=== PATIENT | male | born 1965 | race American Indian/Alaskan Native ===

== ENCOUNTER 2017-02-24 05:52 | Day surgery (SDC) | payer BC ==
[2017-02-24] MEDS ORDERED: fentaNYL 100 MCG/2 ML SDV IV ONE ×2 (05:53→07:33)
[2017-02-24] MEDS ORDERED: Midazolam 1 MG/ML 2 ML SDV IV ONE ×6 (05:53→07:42)
[2017-02-24] MEDS ORDERED: Sodium Chloride 0.9% 10 ML Syringe FLUSH PRN (06:00)
[2017-02-24] MEDS ORDERED: Dextrose 5%-0.45% NaCl 1,000 ML IV SCH (06:00)
[2017-02-24] MEDS ORDERED: Midazolam 1 MG/ML 2 ML SDV ONE (06:14)
[2017-02-24] MEDS ORDERED: fentaNYL 100 MCG/2 ML SDV ONE (06:14)
--- NOTE | 2017-02-24 13:07 | OR ---
DATE: 02/24/2017 PROCEDURES: Total colonoscopy, narrow-band imaging, and multiple cold snare polypectomies. INSTRUMENT USED: CF-H180 AL Olympus video colonoscope. PREMEDICATIONS: Fentanyl 100 mcg intravenous, Versed 3.5 mg intravenous. The procedure was done under pulse oximetry, BP recording, and monitoring specialist. INDICATION: Screening colonoscopic examination is done for detection of any polypoid lesions and removal, endoscopic hemostasis therapy if needed. DESCRIPTION OF PROCEDURE: Initial rectal exam was unremarkable. Rigid anoscopy was normal. The colonoscope was passed with ease. In the distal rectum, 3-mm sized benign- appearing polyp was noted. NBI views were obtained, photographs were taken, cold snare polypectomy was done, the tissue was retrieved and sent for histopathology. In the distal sigmoid colon, another 3-mm sized benign- appearing polyp was noted, NBI views were obtained, cold snare polypectomy was done, the tissue was retrieved and sent for histopathology. Numerous scattered diverticula were noted in the distal left colon along with some deformity. The scope was passed with ease up to the ileocecal area, photographs were taken of the normal-appearing cecum identified by landmarks of appendiceal orifice and double-bulged ileocecal folds. No bleeding was noted from any of the visualized areas at the commencement of examination. No stricture. No vascular ectasia. No large isolated ulcerations seen. No evidence of diffuse inflammatory bowel disease in the form of friability, contact bleeding, or ulcerations. Probing the proximal sides of folds and flexures, using adequate distention and clearing of the stool material, withdrawal of the scope was made. No bleeding was noted from any of the visualized areas at the completion of examination. IMPRESSION: 1. Diminutive rectosigmoid polyps. 2. Diverticulosis. The patient tolerated the procedure well. [facility] /[id number]
== END 2017-02-24 09:50 | disposition home or self-care (01) ==
LOC: DL.ENDO 05:52
PROVIDERS: ATTEND Internal Medicine Gastroenterology
DX: Z12.11 Encounter for screening for malignant neoplasm of colon (principal); D12.8 Benign neoplasm of rectum; K57.30 Diverticulosis of large intestine without perforation or abscess without bleeding; F17.210 Nicotine dependence, cigarettes, uncomplicated; I10 Essential (primary) hypertension; Z86.19 Personal history of other infectious and parasitic diseases; Z98.890 Other specified postprocedural states
CPT/HCPCS: 45385; J2250; J3010; J7042

== ENCOUNTER 2022-06-21 13:16 | Emergency (ER) | payer BC ==
[2022-06-21] MEDS: Lidocaine 1% 10 ML MDV INJECT ONE (14:19)
[2022-06-21] MEDS: Bacitracin Oint 1 GM U/D Packet TOP ONE (14:19)
[2022-06-21] MEDS: Diphtheria,Pertussis(Acell),Tetanus Vaccine 0.5 ML Syringe IM ONE (14:19)
[2022-06-21] MEDS: Bacitracin Oint 1 GM U/D Packet ONE (14:19)
[2022-06-21] MEDS: Lidocaine 1% 5 ML VIAL ONE (14:19)
== END 2022-06-21 14:24 | disposition home or self-care (01) ==
LOC: DL.ED 13:16
DX: S60.351A Superficial foreign body of right thumb, initial encounter (principal); I10 Essential (primary) hypertension; Z91.030 Bee allergy status; W45.8XXA Other foreign body or object entering through skin, initial encounter
CPT/HCPCS: 20520; 90471; 90715; 99282; 99284; A9270-GY; J3490

== ENCOUNTER 2022-06-30 15:19 | Emergency (ER) | payer OTHER, BC ==
[2022-06-30] MEDS ORDERED: Lidocaine 1% 5 ML VIAL INJECT ONE (17:17)
[2022-06-30] MEDS ORDERED: Bacitracin Oint 1 GM U/D Packet TOP ONE (17:18)
== END 2022-06-30 18:08 | disposition home or self-care (01) ==
LOC: DL.ED 15:19
DX: S63.296A Dislocation of distal interphalangeal joint of right little finger, initial encounter (principal); S01.111A Laceration without foreign body of right eyelid and periocular area, initial encounter; I10 Essential (primary) hypertension; Z91.030 Bee allergy status; W11.XXXA Fall on and from ladder, initial encounter; Y99.0 Civilian activity done for income or pay
CPT/HCPCS: 12011; 26775; 29125; 73140; 99283; A9270; J3490

== ENCOUNTER 2023-04-26 08:11 | Emergency (ER) | payer BC ==
[2023-04-26] MEDS ORDERED: Clindamycin HCl 150 MG Cap PO ONE (08:58)
[2023-04-26] MEDS ORDERED: Take Home: Clindamycin HCl 150 MG, 12 Cap Pack PO ONE (08:58)
== END 2023-04-26 09:22 | disposition home or self-care (01) ==
LOC: DL.ED 08:11
DX: K11.5 Sialolithiasis (principal); F17.210 Nicotine dependence, cigarettes, uncomplicated; Z91.030 Bee allergy status
CPT/HCPCS: 99283; A9270